=== PATIENT | male | born 1995 | race Caucasian/White ===

== ENCOUNTER 2017-03-13 21:20 | Emergency (ER) | payer OTHER ==
[~2017-03-13] VITALS: Ht 177.8 cm; Wt 118.9 kg
[~2017-03-13 21:20] MED LIST: ABL10 PO; [UNRECOGNIZED DRUG - OTHER] PO
[2017-03-13 21:35] VITALS: BP 149/75; PULSE 79; TEMP 37; O2SAT 99; Ht 177.8 cm; Wt 118.9 kg
[2017-03-13] MEDS ORDERED: IBUPROFEN 600 MG TAB PO STA (22:14)
[2017-03-13] MEDS ORDERED: BACITRACIN OINT 15 GM TUBE EXT ONE (22:15)
[2017-03-13] MEDS ORDERED: ARIP30TA3 PO (22:16)
--- NOTE | 2017-03-13 22:41 | EMERGENCY ROOM VISIT NOTE ---
History First contact with patient: 22:04 Chief Complaint: SUN BURN Stated Complaint: SUNBURN W BLISTERS History of Present Illness The patient is a 21 year old male who presents to the Emergency Room with complaints of a sunburn for the past few days. The patient states that he was at a community swimming event 3 days ago, and did not wear sunscreen. The patient has been with pain and blisters across his shoulders, and he was not able to sleep tonight because of his pain. He has not had fever or chills. He is reportedly otherwise healthy and rates his discomfort a 5/10. He has not done anything [id number] for his symptoms. Review of Systems More than 10 systems were reviewed and otherwise negative with the exception of history of present illness. Past Medical/Surgical History No pertinent chronic medical disease Family History No pertinent family history Social History Smoking Status: Never Smoker Alcohol Use: none Drug Use: none Marital Status: single Housing Status: lives with family Occupation Status: student Current/Historical Medications Scheduled Aripiprazole (Abilify), 30 MG PO HS Allergies Coded Allergies: No Known Allergies (Unverified , 11/16/10) Physical Exam Vital Signs Date Time Temp Pulse Resp B/P (MAP) Pulse Ox O2 Delivery O2 Flow Rate FiO2 03/13/17 21:35 37.0 79 18 149/75 99 Room Air Pain Rating (0-10): 0 Physical Exam VITALS: Vitals are noted on the nurse's note and reviewed by myself. Vital signs stable. GENERAL: Well-developed, well-nourished, white male, who is in no acute distress and resting comfortably. Patient is cooperative with the examination. HEAD: Normocephalic atraumatic. HEART: Regular rate and rhythm without murmurs gallops or rubs. LUNGS: Clear to auscultation bilaterally without wheezes, rales or rhonchi. No retractions or accessory muscle use. SKIN: The skin was with diffuse redness across the back, shoulders, and chest wall consistent with sunburn. Blistering is appreciated across the top of the shoulders Medical Decision & Procedures Medications Administered Medications (Trade) Dose Ordered Sig/Renetta Route Start Time Stop Time Status Last Admin Dose Admin Ibuprofen (Motrin Tab) 600 mg NOW STAT PO 03/13/17 22:14 03/13/17 22:15 DC 03/13/17 22:23 600 MG Bacitracin (Bacitracin Oint) 1 appln NOW ONCE EXT 03/13/17 22:15 03/13/17 22:16 DC 03/13/17 22:23 1 APPLN ED Course Physical exam and history were performed. Nursing notes and EMR were reviewed. Patient appears to have sunburn across the upper half of his chest and back. The patient has not taken anything at home for his symptoms. He will be given ibuprofen here in the department. His sunburn was dressed with bacitracin. He may continue these treatments at home, as this should improve his symptoms. The patient was instructed on the utilization of sunscreen and appropriate some prevention devices. The patient was otherwise invited the ER with any new, worsening, or concerning symptoms. The chart was completed utilizing [employer] Voice Recognition Software. Grammatical errors, random word insertions, pronoun errors, and incomplete sentences are an occasional consequence of this system due to software limitations, ambient noise, and hardware issues. Any formal questions or concerns about the content, text, or information contained within the body of this dictation should be directly addressed to the provider for clarification. . Medical Decision Differential diagnosis includes, but is not limited to: Sunburn, first-degree burn, second-degree burn, thermal burn, and others Impression Primary Impression: Burn from the sun Departure Information Dispostion Home / Self-Care Condition GOOD Referrals No Doctor, Assigned (PCP) Forms HOME CARE DOCUMENTATION FORM, IMPORTANT VISIT INFORMATION Patient Instructions My [facility] Additional Instructions You were seen and evaluated today on an emergency basis only. This is not a substitute for, or an effort to provide, complete comprehensive medical care. It is not possible to recognize and treat all injuries or illnesses in a single emergency department visit. For this reason it is recommended that you followup with your primary care physician next week if any ongoing or persistent symptoms. Take ibuprofen 600 mg every 6 hours as needed. Apply bacitracin ointment 3 times daily. This is readily available over-the- counter. Wear appropriate sun protection when outside You are welcome to return to the emergency department anytime with new, worsening, or concerning symptoms.
== END 2017-03-13 22:33 | disposition home or self-care (01) ==
LOC: C.EDB 21:21 → C.EDD 22:33
DX: L55.1 Sunburn of second degree (principal); Z79.899 Other long term (current) drug therapy